=== PATIENT | female | born 1965 | race Caucasian/White ===

== ENCOUNTER 2017-01-03 19:48 | Inpatient (IN) | payer OTHER ==
[~2017-01-03] VITALS: Ht 170.2 cm; Wt 62.3 kg
[~2017-01-03 19:48] MED LIST: DIAZ5TAB PO; OXYC1TAB7 PO; PANT40TA5 PO; SERT100T PO; SUCR1TAB29 PO; TRAZ150T55 PO
[2017-01-03] MEDS ORDERED: IV NORMAL SALINE 1000ML BAG 1,000 ML IV ONE (20:00)
[2017-01-03] MEDS ORDERED: IPRATRPIUM/ALBUTEROL 0.5/2.5MG 3 ML NEBU. NEB ONE (20:00)
--- NOTE | 2017-01-03 20:30 | PHYS DOC ---
Past Medical History Past Medical History: Anxiety, COPD, Depression Additional Past Medical Histor: PANIC DISORDER, INSOMNIA, BULGING DISC,TBI Past Surgical History: Appendectomy, Tonsillectomy, Tubal ligation Alcohol Use: Occasionally Drug Use: Marijuana Adult General Chief Complaint Chief Complaint: SYNCOPE HPI HPI 51-year-old female who presents with a syncopal episode just prior to arrival. Patient recently had a pacemaker placed at [facility] approximately 10 days ago for sick sinus syndrome. Prior to the pacemaker placement, she had had multiple episodes of syncope like her episode today. She states she is otherwise well today and arose from her chair after eating a meal and felt significantly lightheaded and passed out and states she is unsure if she hit her head. Per EMS, the patient was hypotensive upon arrival in the 80s systolic. Fluid bolus was administered and upon arrival and now her blood pressure is much improved at 117/76. She is fully alert and oriented upon my exam and in no acute distress. She denies any chest pain or shortness of breath. Patient is on Eliquis therapy. Review of Systems Review of Systems Constitutional: Denies fever or chills [] Eyes: Denies change in visual acuity, redness, or eye pain [] HENT: Denies nasal congestion or sore throat [] Respiratory: Denies cough or shortness of breath [] Cardiovascular: No additional information not addressed in HPI [] GI: Denies abdominal pain, nausea, vomiting, bloody stools or diarrhea [] : Denies dysuria or hematuria [] Musculoskeletal: Denies back pain or joint pain [] Integument: Denies rash or skin lesions [] Neurologic: Denies headache, focal weakness or sensory changes [] Endocrine: Denies polyuria or polydipsia [] Current Medications Current Medications Current Medications Medications (Trade) Dose Ordered Sig/Rubio Start Time Stop Time Status Last Admin Dose Admin Albuterol/ Ipratropium (Duoneb) 3 ml 1X ONCE 01/03/17 20:00 01/03/17 20:02 DC 01/03/17 20:14 3 ML Sodium Chloride 1,000 ml @ 1,000 mls/hr 1X ONCE 01/03/17 20:00 01/03/17 20:59 DC 01/03/17 20:00 1,000 MLS/HR Allergies Allergies Allergies Coded Allergies Type Severity Reaction Last Updated Verified latex Allergy Mild Hives 07/11/15 Yes Physical Exam Physical Exam Constitutional: Well developed, well nourished, no acute distress, non-toxic appearance. [] HENT: Normocephalic, atraumatic, bilateral external ears normal, oropharynx moist, no oral exudates, nose normal. [] Eyes: PERRLA, EOMI, conjunctiva normal, no discharge. [] Neck: Normal range of motion, no tenderness, supple, no stridor. [] Cardiovascular:Heart rate regular rhythm, no murmur [] Lungs & Thorax: Bilateral breath sounds clear to auscultation, pacemaker site appears clean dry and intact and there is no evidence of cellulitic change or purulence from the wound site [] Abdomen: Bowel sounds normal, soft, no tenderness, no masses, no pulsatile masses. [] Skin: Warm, dry, no erythema, no rash. [] Back: No tenderness, no CVA tenderness. [] Extremities: No tenderness, no cyanosis, no clubbing, ROM intact, no edema. [] Neurologic: Alert and oriented X 3, normal motor function, normal sensory function, no focal deficits noted. [] Psychologic: Affect normal, judgement normal, mood normal. [] Current Patient Data Vital Signs Vital Signs Date Time Temp Pulse Resp B/P (MAP) Pulse Ox O2 Delivery O2 Flow Rate FiO2 01/03/17 21:34 150 143/63 (89) 93 Room Air 01/03/17 20:18 97.9 16 2.0 97.9 Lab Values Laboratory Tests Test 01/03/17 19:55 White Blood Count 7.9 x10^3/uL (4.0-11.0) Red Blood Count 4.23 x10^6/uL (3.50-5.40) Hemoglobin 13.1 g/dL (12.0-15.5) Hematocrit 38.4 % (36.0-47.0) Mean Corpuscular Volume 91 fL (79-100) Mean Corpuscular Hemoglobin 31 pg (25-35) Mean Corpuscular Hemoglobin Concent 34 g/dL (31-37) Red Cell Distribution Width 13.7 % (11.5-14.5) Platelet Count 311 x10^3/uL (140-400) Neutrophils (%) (Auto) 57 % (31-73) Lymphocytes (%) (Auto) 29 % (24-48) Monocytes (%) (Auto) 12 % (0-9) H Eosinophils (%) (Auto) 2 % (0-3) Basophils (%) (Auto) 1 % (0-3) Neutrophils # (Auto) 4.5 x10^3uL (1.8-7.7) Lymphocytes # (Auto) 2.3 x10^3/uL (1.0-4.8) Monocytes # (Auto) 1.0 x10^3/uL (0.0-1.1) Eosinophils # (Auto) 0.1 x10^3/uL (0.0-0.7) Basophils # (Auto) 0.0 x10^3/uL (0.0-0.2) Sodium Level 135 mmol/L (136-145) L Potassium Level 3.4 mmol/L (3.5-5.1) L Chloride Level 98 mmol/L (98-107) Carbon Dioxide Level 25 mmol/L (21-32) Anion Gap 12 (6-14) Blood Urea Nitrogen 11 mg/dL (7-20) Creatinine 0.8 mg/dL (0.6-1.0) Estimated GFR (Cockcroft-Gault) 75.6 Glucose Level 115 mg/dL (70-99) H Calcium Level 8.5 mg/dL (8.5-10.1) Magnesium Level 1.9 mg/dL (1.8-2.4) Troponin I Quantitative < 0.017 ng/mL (0.000-0.055) Laboratory Tests 01/03/17 19:55 Laboratory Tests 01/03/17 19:55 EKG EKG EKG as interpreted by me shows a sinus rhythm with a rate of 79 bpm. There is no acute injury pattern. There are pacer spikes before every P wave. Repeat EKG taken at 2046 shows a tachydysrhythmia with a rate of 140 bpm. No obvious pacer spikes are seen. There is no acute injury pattern. Radiology/Procedures Radiology/Procedures One view of the chest as interpreted by me shows a pacemaker with appropriate lead placement. There is no pneumothorax. No acute abnormalities seen. CT of the head without contrast demonstrates the following: HISTORY Syncope, fell and hit head, anticoagulated TECHNIQUE Exposure: One or more of the following individualized dose reduction techniques were utilized for this exam: 1. Automated exposure control. 2. Adjustment of the mA and/or kV according to patient size. 3. Use of iterative reconstruction technique. [address] imaging skullbase to vertex COMPARISON No prior FINDINGS No intracranial hemorrhage, mass, hydrocephalus, extra-axial fluid collections or infarction. Orbits, paranasal sinuses, mastoids and bones are unremarkable. IMPRESSION No acute intracranial CT abnormality. Course & Med Decision Making Course & Med Decision Making Pertinent Labs and Imaging studies reviewed. (See chart for details) This 51-year-old female with a single episode of full laboratory workup. Her EKG and chest x-ray are unremarkable at this time. Her pacemaker site appears to be within the normal stages of healing. Her device will be interrogated. Laboratory workup is pending at this time. Her blood pressure is significantly improved after fluid bolus. A CT of her head will also be obtained as the patient is on Eliquis therapy and is unsure if she hit her head. While in the department the patient has had a tachydysrhythmia that's ranged between the 120s to 160s. She also had several runs of the wide complex rhythm. A meal bolus was given. Her case is discussed with the senior benefits analyst, Dr. Kearns, who agreed with this plan. [employer] roofing sales representative came to the emergency department and interrogated her device and did not see any issue with the device itself. He did mention that she is having significant atrial tachycardia that she had when her device was placed 10 days ago. Laboratory workup was unremarkable. I discussed the need to admit the patient with the hospitalist, Dr. Felton, who agreed to accept the patient for further evaluation and treatment. Dragon Disclaimer Dragon Disclaimer This electronic medical record was generated, in whole or in part, using a voice recognition dictation system. Departure Departure Impression: Primary Impression: Dysrhythmia Additional Impression: Syncope Disposition: 09 ADMITTED INPATIENT Admitting Physician: Ximena Felton Condition: STABLE Referrals: ANN BOGGS MD (PCP) Problem Qualifiers JOSE CHURHC DO January 03, 2017 20:30
[2017-01-03 20:57] LABS: BASO % 1 % (0-3); EOS % 2 % (0-3); HEMATOCRIT 38.4 % (36.0-47.0); HEMOGLOBIN 13.1 g/dL (12.0-15.5); LYMPH # 2.3 x10^3/uL (1.0-4.8); LYMPH % 29 % (24-48); MEAN CORPUSCULAR HEMOGLOBIN 31 pg (25-35); MEAN CORPUSCULAR HGB CONC 34 g/dL (31-37); MEAN CORPUSCULAR VOLUME 91 fL (79-100); MONO % 12 % (0-9); NEUT % 57 % (31-73); PLATELET COUNT 311 x10^3/uL (140-400); RED BLOOD COUNT 4.23 x10^6/uL (3.50-5.40); RED CELL DISTRIBUTION WIDTH 13.7 % (11.5-14.5); WHITE BLOOD COUNT 7.9 x10^3/uL (4.0-11.0)
[2017-01-03 21:12] LABS: CALCIUM 8.5 mg/dL (8.5-10.1); CREATININE 0.8 mg/dL (0.6-1.0); GFR 75.6; POTASSIUM 3.4 mmol/L (3.5-5.1)
--- NOTE | 2017-01-03 21:33 | RAD ---
PROCEDURE CT head without contrast HISTORY Syncope, fell and hit head, anticoagulated TECHNIQUE Exposure: One or more of the following individualized dose reduction techniques were utilized for this exam: 1. Automated exposure control. 2. Adjustment of the mA and/or kV according to patient size. 3. Use of iterative reconstruction technique. [address] imaging skullbase to vertex COMPARISON No prior FINDINGS No intracranial hemorrhage, mass, hydrocephalus, extra-axial fluid collections or infarction. Orbits, paranasal sinuses, mastoids and bones are unremarkable. IMPRESSION No acute intracranial CT abnormality. Electronically signed by: Mane Land MD (January 03, 2017 21:32:19)
[2017-01-03] MEDS ORDERED: AMIODARONE 150 MG in IV DEXTROSE 5% 100 ML IV ONE (21:45)
[2017-01-03] MEDS: IV NORMAL SALINE 1000ML BAG 1,000 ML IV SCH (22:00)
[2017-01-03] MEDS ORDERED: ONDANSETRON PF 4 MG/2 ML VIAL. IV PRN (22:00)
[2017-01-03 22:35] LABS: BILIRUBIN,URINE NEGATIVE (NEG); GLUCOSE,URINE NEGATIVE (NEG); NITRITE,URINE NEGATIVE (NEG); PH,URINE 6.5; PROTEIN,URINE NEGATIVE (NEG-TRACE); UROBILINOGEN,URINE 0.2 mg/dL (0.2 mg/dL)
[2017-01-03 22:45] LABS: BACTERIA,URINE FEW /HPF (0-FEW); SQUAMOUS EPITHELIAL CELL,UR FEW /LPF
[2017-01-04] VITALS (7 sets, daily range): BP systolic 95–139; BP diastolic 57–88
[2017-01-04] MEDS: IV NORMAL SALINE 1000ML BAG 1,000 ML IV SCH ×2 (00:56→14:00)
[2017-01-04] MEDS ORDERED: DULO30CA2 PO (01:31)
[2017-01-04] MEDS ORDERED: APIX5TAB PO (01:31)
[2017-01-04] MEDS ORDERED: HYDR-971 PO (01:31)
[2017-01-04] MEDS ORDERED: ATEN25TA PO (01:31)
[2017-01-04] MEDS ORDERED: NAPR500T3 PO (01:31)
[2017-01-04] MEDS ORDERED: MIRT15TA3 PO (01:31)
[2017-01-04] MEDS ORDERED: VENTOLIN HFA18 GM INH (01:31)
[2017-01-04] MEDS ORDERED: TRAZ100T12 PO (01:31)
[2017-01-04] MEDS ORDERED: DRON400T PO (01:31)
[2017-01-04] MEDS ORDERED: traZODone 100 MG TABLET. PO PRN (01:45)
[2017-01-04] MEDS ORDERED: diazePAM 5 MG TABLET PO PRN (01:45)
[2017-01-04] MEDS ORDERED: NON FORMULARY ITEM (Albuterol Sulfate (Ventolin Hfa Inhaler) 2 PUFF) INH SCH (01:45)
--- NOTE | 2017-01-04 01:50 | ACF ---
Admission Forms Criteria CARDIAC ARRHYTHMIA Clinical Indications for Inpatient Care (Place 'X' for any and all applicable criteria): Ongoing inpatient care for cardiac arrhythmia needed as indicated by ANY ONE of the following(1)(2)(3)(4)(7) : [ ]I. Vital sign abnormality secondary to arrhythmia [ ]II. Patient has implantable cardioverter-defibrillator that has fired more than once within past 24 hours or needs immediate adjustment of settings that cannot be done other than in inpatient setting. [ ]III. Altered mental status [ ]IV. Resuscitated or aborted ventricular fibrillation or ventricular tachycardia in patient without implantable cardioverter- defibrillator [ ]V. Initiation of antiarrhythmic drug therapy is needed in patient at high risk of adverse effects as indicated by ANY ONE of the following: [ ]a) Significant structural heart disease (e.g., reduced ejection fraction, congenital heart disease, valvular heart disease) [ ]b) Prolonged QT interval [ ]c) Underlying sinus node or atrioventricular conduction disturbances [ ]d) Need for treatment with antiarrhythmic drugs that have significant proarrhythmic potential (e.g., dofetilide, sotalol, procainamide) [ ]. Acute myocardial ischemia as a consequence or suspected cause of arrhythmia [X]VII. Syncope secondary to arrhythmia [ ]VIII. Heart failure (eg, pulmonary edema) secondary to arrhythmia) (26)(27) [ ]IX. Patient has implantable cardioverter defibrillator that has fired more than once within past 24hr or needs immediate adjustment of settings that cannot be done other than in inpatient setting.(8) [ ]X. Sustained (30 seconds or more of ventricular rhythm at more than 100 beats per minute) ventricular tachycardia and ANY ONE of the following: [ ]a) No previous known history of sustained ventricular tachycardia [ ]b) Structural heart disease (eg, reduced ejection fraction, hypertrophic cardiomyopathy, severe valvular disease) and without implantable cardioverter-defibrillator(24)(32)(33) [ ]c) Need for treatment of drug toxicity (eg, digitalis toxicity)(34 ) [ ]d) Need for electrical cardioversion Extended stay beyond goal length of stay may be needed for [ ]a) Hemodynamic stability [ ]b) Arrhythmia evaluation completed [ ]c) Reversible causes of arrhythmia eliminated or mitigated [ ]d) Specific antiarrhythmia treatment initiated as appropriate [ ]e) Anticoagulation requirements addressed (or anticoagulation not required). [ ]f) Medical comorbidities manageable at lower level of care The original [facility] [employer] content created by [facility]formerly [employer] has been revised. The portions of the content which have been revised are identified through the use of italic text or in bold, and [facility] has neither reviewed nor approved the modified material. All other unmodified content is copyright [facility] [employer]. Please see references footnoted in the original [facility] edition 2016 Admission Criteria Met?: Yes ASTRID MERCEDES January 04, 2017 01:50
[2017-01-04] MEDS: HYDROcodone/APAP 5/325MG 1 TAB TABLET PO PRN ×3 (01:53→16:16)
[2017-01-04] MEDS ORDERED: UBID100C26 PO (01:58)
[2017-01-04] MEDS ORDERED: CHOL10003 PO (01:58)
[2017-01-04] MEDS ORDERED: DILT120C97 PO (01:58)
[2017-01-04] MEDS ORDERED: NON FORMULARY ITEM (Ubidecarenone (Coq-10) 100 MG) PO SCH (02:00)
[2017-01-04] MEDS ORDERED: ALBUTEROL SULFATE 2.5 MG/3 ML NEBU. NEB PRN (02:00)
[2017-01-04 04:29] LABS: BASO % 0 % (0-3); EOS % 2 % (0-3); HEMATOCRIT 35.2 % (36.0-47.0); HEMOGLOBIN 12.3 g/dL (12.0-15.5); LYMPH # 2.1 x10^3/uL (1.0-4.8); LYMPH % 33 % (24-48); MEAN CORPUSCULAR HEMOGLOBIN 31 pg (25-35); MEAN CORPUSCULAR HGB CONC 35 g/dL (31-37); MEAN CORPUSCULAR VOLUME 89 fL (79-100); MONO % 12 % (0-9); NEUT % 53 % (31-73); PLATELET COUNT 329 x10^3/uL (140-400); RED BLOOD COUNT 3.96 x10^6/uL (3.50-5.40); RED CELL DISTRIBUTION WIDTH 14.1 % (11.5-14.5); WHITE BLOOD COUNT 6.2 x10^3/uL (4.0-11.0)
[2017-01-04 04:55] LABS: CALCIUM 8.3 mg/dL (8.5-10.1); CREATININE 0.8 mg/dL (0.6-1.0); GFR 75.6; POTASSIUM 4.3 mmol/L (3.5-5.1)
--- NOTE | 2017-01-04 06:12 | EKG ---
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
--- NOTE | 2017-01-04 06:57 | EKG ---
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
--- NOTE | 2017-01-04 07:11 | RAD ---
Indication: Syncopal episode. Time of exam 2015 hours. No prior studies are available for comparison. The heart size is normal. There is a dual lead left subclavian cardiac pacer. No infiltrates are seen. There is no failure. No effusion or pneumothorax is identified. Impression: No acute abnormality is detected.
[2017-01-04] MEDS: IPRATRPIUM/ALBUTEROL 0.5/2.5MG 3 ML NEBU. NEB SCH ×4 (08:09→16:14)
[2017-01-04] MEDS: APIXABAN 5 MG TABLET. PO SCH ×2 (08:37→21:15)
[2017-01-04] MEDS: CHOLECALCIFEROL (VITAMIN D3) 1,000 UNIT TABLET PO SCH (08:37)
[2017-01-04] MEDS: DULoxetine HCL 30 MG CAPSULE.DR PO SCH (08:37)
[2017-01-04] MEDS: ATENOLOL 25 MG TABLET. PO SCH (08:38)
[2017-01-04] MEDS: DRONEDARONE HCL 400 MG TABLET PO SCH ×2 (08:40→21:14)
[2017-01-04] MEDS ORDERED: NAPROXEN 500 MG TABLET PO SCH (09:00)
[2017-01-04] MEDS ORDERED: dilTIAZem IV PUSH 25 MG/5 ML VIAL IVP ONE (09:45)
--- NOTE | 2017-01-04 09:52 | PDOC2 ---
IRIS COPPOLA [employer] WORKER 01/04/17 0952: CARDIAC CONSULT DATE OF CONSULT Date of Consult DATE: 01/04/17 TIME: 09:52 REASON FOR CONSULT Reason for Consult: dysrhythmia REFERRING PHYSICIAN Referring Physician: Dr. Awais Cornell SOURCE Source: Chart review, Patient (who is a vague and poor historian) HISTORY OF PRESENT ILLNESS HISTORY OF PRESENT ILLNESS 51 year female with atrial fib ablation in November at and then dual chamber Biotron[facility] PPM 12/31/2016 for SSS and PAF. Syncopal episode yesterday after eating; she stood to throw away a plate, became dizzy and lightheaded and then hit the floor. Witnessed by her niece but unclear how long she was out or if she struck furniture when falling. Lost control of bowels but not bladder and did not bite tongue. Reports 3 previous syncopal episodes with the most recent one being possibly 3 - 4 months; possibly was evaluated at . She is vague about the events surrounding this. Had taken diazepam, Cymbalta, hydrocodone and possibly used THC yesterday prior to syncope. EKG with atrial fibrillation/flutter and was treated with IV amiodarone 150 mg. PPM interrogated yesterday without significant findings; lead impedances satisfactory. Reason for Visit: atrial fib/rvr PAST MEDICAL HISTORY Cardiovascular: AFIB (with previous ablation ), Syncope, Other (SSS; dual chamber Biotronik PPM) Pulmonary: COPD CENTRAL NERVOUS SYSTEM: Other (TBI) GI: GERD Psych: Anxiety, Addictions (THC), Depression, Panic Rheumatologic: No pertinent hx Infectious disease: No pertinent hx ENT: No pertinent hx Renal/: No pertinent hx Endocrine: No pertinent hx Dermatology: No pertinent hx PAST SURGICAL HISTORY Past Surgical History: Appendectomy, Tubal Ligation, Tonsillectomy FAMILY HISTORY Family History: Heart Disease (mother of [place] age 52), Other (WPW) SOCIAL HISTORY Smoke: 1 pack per day (1.5 ppd since age 15; recently decreased to ~ 1/2 ppd) Drugs: Marijuana (daily) Lives: with Family CURRENT MEDICATIONS CURRENT MEDICATIONS Current Medications Medications (Trade) Dose Ordered Sig/Rubio Route PRN Reason Start Time Stop Time Status Last Admin Dose Admin Sodium Chloride 1,000 ml @ 1,000 mls/hr 1X ONCE IV 01/03/17 20:00 01/03/17 20:59 DC 01/03/17 20:00 Albuterol/ Ipratropium (Duoneb) 3 ml 1X ONCE NEB 01/03/17 20:00 01/03/17 20:02 DC 01/03/17 20:14 Amiodarone HCl 150 mg/Dextrose 103 ml @ 618 mls/hr 1X ONCE IV 01/03/17 21:45 01/03/17 21:54 DC 01/03/17 21:53 Sodium Chloride 1,000 ml @ 125 mls/hr Q8H IV 01/03/17 22:00 01/04/17 21:59 01/04/17 00:56 Albuterol/ Ipratropium (Duoneb) 3 ml RTQID NEB 01/04/17 08:00 01/05/17 07:59 01/04/17 08:09 Apixaban (Eliquis) 5 mg BID PO 01/04/17 09:00 01/04/17 08:37 Atenolol (Tenormin) 12.5 mg DAILY PO 01/04/17 09:00 01/04/17 08:38 Diazepam (Valium) 5 mg PRN BID PRN PO ANXIETY / AGITATION 01/04/17 01:45 01/04/17 08:37 Dronedarone (Multaq) 400 mg BID PO 01/04/17 09:00 01/04/17 08:40 Duloxetine HCl (Cymbalta) 30 mg DAILY PO 01/04/17 09:00 01/04/17 08:37 Acetaminophen/ Hydrocodone Bitart (Lortab 5/325) PAIN PRN Q4HRS PRN PO PAIN 01/04/17 01:45 01/04/17 08:39 Vitamin D (Vitamin D3) 1,000 unit DAILY PO 01/04/17 09:00 01/04/17 08:37 Diltiazem HCl (Cardizem 24hr ) 120 mg DAILY PO 01/04/17 09:00 01/04/17 08:39 ALLERGIES ALLERGIES: Coded Allergies: latex (Verified Allergy, Mild, Hives, 07/11/15) ROS General: No: Chills, Night Sweats, Fatigue, Malaise, Appetite, Other PSYCHOLOGICAL ROS: YES: Anxiety, Depression, Sleep disturbances Eyes: No Blurry vision, No Decreased vision, No Double vision, No Dry eyes, No Excessive tearing, No Eye Pain, No Itchy Eyes, No Loss of vision, No Photophobia , No Scotomata, No Uses contacts, No Uses glasses, No Other HEENT: No: Heacaches, Visual Changes, Hearing change, Nasal congestion, Nasal discharge, Oral lesions, Sinus pain, Sore Throat, Epistaxis, Sneezing, Snoring, Tinnitus, Vertigo, Vocal changes, Other ALLERGY AND IMMUNOLOGY: No: Hives, Insect Bite Sensitivity, Itchy/Watery Eyes, Nasal Congestion, Post Nasal Drip, Seasonal Allergies, Other Hematological and Lymphatic: No: Bleeding Problems, Blood Clots, Blood Transfusions, Brusing, Night Sweats, Pallor, Swollen Lymph Nodes, Other ENDOCRINE: No: Breast Changes, Galactorrhea, Hair Pattern Changes, Hot Flashes , Malaise/lethargy, Mood Swings, Palpitations, Polydipsia/polyuria, Skin Changes , Temperature Intolerance, Unexpected Weight Changes, Other Breast: No New/Changing Breast Lumps, No Nipple changes, No Nipple discharge, No Other Respiratory: YES: Cough, Wheezing Cardiovascular: No Chest Pain, No Palpitations, No Orthopnea, No Paroxysmal Noc. Dyspnea, No Edema, No Lt Headedness, No Other Gastrointestinal: No Nausea, No Vomiting, No Abdominal Pain, No Diarrhea, No Constipation, No Melena, No Hematochezia, No Other Genitourinary: No Dysuria, No Frequency, No Incontinence, No Hematuria, No Retention, No Discharge, No Urgency, No Pain, No Flank Pain, No Other Musculoskeletal: No Gait Disturbance, No Joint Pain, No Joint Stiffness, No Joint Swelling, No Muscle Pain, No Muscular Weakness, No Pain In:, No Swelling In:, No Other Neurological: Yes Dizziness Skin: No Dry Skin, No Eczema, No Hair Changes, No Lumps, No Mole Changes, No Mottling, No Nail Changes, No Pruritus, No Rash, No Skin Lesion Changes, No Other, No Acne PHYSICAL EXAM General: Alert, Cooperative HEENT: Atraumatic, PERRLA Lungs: Other (exp wheezing) Heart: Other (tachycardic; IRRR; tele: atrial fib/rvr) Abdomen: Normal bowel sounds, Soft Extremities: No edema, Normal pulses Skin: No rashes, Other (left pectoral/axillary incision C/D/I with intact steri -strips) Neuro: Normal speech Psych/Mental Status: Mental status NL, Mood NL MUSCULOSKELETAL: No deformity VITALS VITALS Vital Signs Date Time Temp Pulse Resp B/P (MAP) Pulse Ox O2 Delivery O2 Flow Rate FiO2 01/04/17 08:40 82 100/62 01/04/17 08:39 19 93 Room Air 01/04/17 07:00 98.5 98.5 01/03/17 20:18 2.0 LABS Lab: Laboratory Tests Test 01/03/17 19:55 01/03/17 22:30 01/04/17 03:55 White Blood Count 7.9 x10^3/uL (4.0-11.0) 6.2 x10^3/uL (4.0-11.0) Red Blood Count 4.23 x10^6/uL (3.50-5.40) 3.96 x10^6/uL (3.50-5.40) Hemoglobin 13.1 g/dL (12.0-15.5) 12.3 g/dL (12.0-15.5) Hematocrit 38.4 % (36.0-47.0) 35.2 % (36.0-47.0) Mean Corpuscular Volume 91 fL (79-100) 89 fL (79-100) Mean Corpuscular Hemoglobin 31 pg (25-35) 31 pg (25-35) Mean Corpuscular Hemoglobin Concent 34 g/dL (31-37) 35 g/dL (31-37) Red Cell Distribution Width 13.7 % (11.5-14.5) 14.1 % (11.5-14.5) Platelet Count 311 x10^3/uL (140-400) 329 x10^3/uL (140-400) Neutrophils (%) (Auto) 57 % (31-73) 53 % (31-73) Lymphocytes (%) (Auto) 29 % (24-48) 33 % (24-48) Monocytes (%) (Auto) 12 % (0-9) 12 % (0-9) Eosinophils (%) (Auto) 2 % (0-3) 2 % (0-3) Basophils (%) (Auto) 1 % (0-3) 0 % (0-3) Neutrophils # (Auto) 4.5 x10^3uL (1.8-7.7) 3.3 x10^3uL (1.8-7.7) Lymphocytes # (Auto) 2.3 x10^3/uL (1.0-4.8) 2.1 x10^3/uL (1.0-4.8) Monocytes # (Auto) 1.0 x10^3/uL (0.0-1.1) 0.7 x10^3/uL (0.0-1.1) Eosinophils # (Auto) 0.1 x10^3/uL (0.0-0.7) 0.1 x10^3/uL (0.0-0.7) Basophils # (Auto) 0.0 x10^3/uL (0.0-0.2) 0.0 x10^3/uL (0.0-0.2) Sodium Level 135 mmol/L (136-145) 143 mmol/L (136-145) Potassium Level 3.4 mmol/L (3.5-5.1) 4.3 mmol/L (3.5-5.1) Chloride Level 98 mmol/L (98-107) 107 mmol/L (98-107) Carbon Dioxide Level 25 mmol/L (21-32) 27 mmol/L (21-32) Anion Gap 12 (6-14) 9 (6-14) Blood Urea Nitrogen 11 mg/dL (7-20) 9 mg/dL (7-20) Creatinine 0.8 mg/dL (0.6-1.0) 0.8 mg/dL (0.6-1.0) Estimated GFR (Cockcroft-Gault) 75.6 75.6 Glucose Level 115 mg/dL (70-99) 101 mg/dL (70-99) Calcium Level 8.5 mg/dL (8.5-10.1) 8.3 mg/dL (8.5-10.1) Magnesium Level 1.9 mg/dL (1.8-2.4) Troponin I Quantitative < 0.017 ng/mL (0.000-0.055) 0.020 ng/mL (0.000-0.055) Urine Collection Type Unknown Urine Color Yellow Urine Clarity Clear Urine pH 6.5 Urine Specific Watson <=1.005 Urine Protein Negative mg/dL (NEG-TRACE) Urine Glucose (UA) Negative mg/dL (NEG) Urine Ketones (Stick) Negative mg/dL (NEG) Urine Blood Small (NEG) Urine Nitrite Negative (NEG) Urine Bilirubin Negative (NEG) Urine Urobilinogen Dipstick 0.2 mg/dL (0.2 mg/dL) Urine Leukocyte Esterase Negative (NEG) Urine RBC 3-5 /HPF (0-2) Urine WBC 1-4 /HPF (0-4) Urine Squamous Epithelial Cells Few /LPF Urine Amorphous Sediment Present /HPF Urine Bacteria Few /HPF (0-FEW) IMAGES IMAGES CXR: No prior studies are available for comparison. The heart size is normal. There is a dual lead left subclavian cardiac pacer. No infiltrates are seen. There is no failure. No effusion or pneumothorax is identified. Impression: No acute abnormality is detected. ASSESSMENT/PLAN ASSESSMENT/PLAN 1. syncope ? related to medications check orthostatic BP with loss of bowel control - ?? seizure no dysrhythmia seen on PPM interrogation request records from [facility] - if no response from [facility], will order echo given IVF bolus 2. atrial fib with RVR AF ablation 11/2016 @ [facility] bolused with IV amiodarone in ER routinely treated with Multaq - continue converted to SR/A-pacing prior to bolusing with dilitazem and starting gtt increased diltiazem to 180 mg daily continue OAC with Eliquis BID 3. SSS with previous Biotronik PPM interrogation without significant findings leads appear well positioned on CXR incision remains intact 4. COPD with persistent tobacco abuse 5. psychiatric/mental health issues/TBI Problems: DINORA HOGAN MD 01/04/17 1608: CARDIAC CONSULT ALLERGIES ALLERGIES: Coded Allergies: latex (Verified Allergy, Mild, Hives, 07/11/15) ASSESSMENT/PLAN ASSESSMENT/PLAN Pt. seen and examined. Agree with above HYDRODYNAMICIST note. No acute events overnight. Pacer check wnl. Wound looks good from cephalic approach. No events on tele. Suspect her syncope was vagal issue from narcotics, possible mild tachyarrhythmia. Still has parox afib. Will need follow up from EP. Problems: IRIS COPPOLA APRN January 04, 2017 09:52 DINORA HOGAN MD January 04, 2017 16:08
[2017-01-04] MEDS ORDERED: ANTI-COAG MONITOR BY PHARMACY. MC PRN (13:00)
--- NOTE | 2017-01-04 16:28 | CARD ---
APPROVED REPORT EXAM: Two-dimensional and M-mode echocardiogram with Doppler and color Doppler. Other Information Quality : Average INDICATION Syncope 2D DIMENSIONS RVDd2.5 (2.9-3.5cm)Left Atrium(2D)2.5 (1.6-4.0cm) IVSd0.9 (0.7-1.1cm)Aortic Root(2D)2.9 (2.0-3.7cm) LVDd4.2 (3.9-5.9cm)LVOT Diameter2.0 (1.8-2.4cm) PWd0.9 (0.7-1.1cm)LVDs3.3 (2.5-4.0cm) FS (%) 22.6 %SV36.5 ml LVEF(%)45.9 (>50%) Aortic Valve AoV Peak Mook.112.9cm/sAoV VTI20.2cm AO Peak GR.5.1mmHgLVOT Peak Mook.86.8cm/s LVOT VTI 17.58cmAO Mean GR.3mmHg MAGDALENO (VMAX)2.66dv3LPJ (VTI)2.75cm2 Mitral Valve MV E Dlbaaack61.4cm/sMV DECEL [id number] MV A Hlbkgamm32.1cm/sMV E Mean Gr.1mmHg MV UUK00zpN/A Ratio1.6 MV A [id number] (PHT)5.81cm2 TDI E/Lateral E'6.4E/Medial E'8.4 Pulmonary Valve RVOT VTI11.7cm Tricuspid Valve TR P. Ekyevrgq889eq/sRAP [id number] TR Peak Gr.65srVxNQHW33fiTq Pulmonary Vein S1 Sshtynyl57.5cm/sD2 Nqunqhsh18.5cm/s LEFT VENTRICLE The left ventricle is normal size. There is normal left ventricular wall thickness. Left ventricle sy stolic function is normal. The Ejection Fraction is 50-55%. The left ventricular diastolic function a nd filling is normal for age. There is no ventricular septal defect visualized. RIGHT VENTRICLE The right ventricle is normal size. The right ventricular systolic function is normal. There is a pac emaker lead seen in the RV/RA. ATRIA The left atrium size is normal. The right atrium size is normal. The interatrial septum is intact wit h no evidence for an atrial septal defect or patent foramen ovale as noted on 2-D or Doppler imaging. AORTIC VALVE The aortic valve is normal in structure and function. The aortic valve is trileaflet. Doppler and Col or Flow revealed no significant aortic regurgitation. There is no significant aortic valvular stenosi s. MITRAL VALVE The mitral valve leaflets are thickened. There is no mitral valve stenosis. Doppler and Color Flow re vealed trace mitral regurgitation. TRICUSPID VALVE The tricuspid valve is normal in structure and function. Doppler and Color Flow revealed mild tricusp id regurgitation. The PA pressure was estimated at 24 mmHg. There is no tricuspid valve stenosis. PULMONIC VALVE The pulmonic valve is not well visualized. Doppler and Color Flow revealed no pulmonic valvular regur gitation. There is no pulmonic valvular stenosis. GREAT VESSELS The aortic root is normal in size. Normal pulmonary venous flow (Doppler). The IVC is normal in size and collapses >50% with inspiration. PERICARDIAL EFFUSION There is no evidence of significant pericardial effusion. Critical Notification Critical Value: No <Conclusion> Left ventricle systolic function is normal. The Ejection Fraction is 50-55%. Trace mitral regurgitation. Mild tricuspid regurgitation. The PA pressure was estimated at 24 mmHg. There is no evidence of significant pericardial effusion.
--- NOTE | 2017-01-04 17:52 | HP ---
ADMIT DATE: CHIEF COMPLAINT: Syncope. HISTORY OF PRESENT ILLNESS: The patient is a 51-year-old woman with history of arrhythmia since age 50, who actually had a pacemaker placement on 01/01/2017 at . She thinks this was for a diagnosis of sick sinus syndrome. She actually had an ablation done as well. Today, she got up from the chair after eating a meal, felt a little lightheaded and passed out. She is sure if she struck her head. Apparently witnesses were close by and saw the event. She recovered consciousness quickly, but was still slightly confused. In the Emergency Room, she actually was found hypotensive with systolic blood pressures in the 80s. She responded to IV fluid administration. The patient actually had multiple episodes of syncope in the past similar to what happened today. These were thought to be secondary to the arrhythmia. Pacemaker has been noted to be functioning well at all. PAST MEDICAL HISTORY: Sick sinus syndrome as above, COPD, anxiety/depression, panic disorder, status post appendectomy, tonsillectomy and tubal ligation. FAMILY HISTORY: Positive for sudden in her mother at age 62. No other family members with arrhythmia to her knowledge. SOCIAL HISTORY: Smokes about a pack a day. Occasional marijuana. Denies any alcohol or other drugs. ALLERGIES: LATEX. HOME MEDICATIONS: Reconciled with MAR. REVIEW OF SYSTEMS: Denies any ongoing issues at this time. Denies any lightheadedness, any headache, any nausea, vomiting, neck pain or other symptoms. Denies any palpitations or chest pain. PHYSICAL EXAMINATION: VITAL SIGNS: From today show a blood pressure of 122/71, heart rate of 91, respiratory rate at 22. She is afebrile. GENERAL: This is a well-nourished, 51-year-old, woman; alert and oriented, in no acute distress. HEENT: Shows no scleral icterus. NECK: Supple, without any lymphadenopathy. LUNGS: Clear to auscultation bilaterally. HEART: Regular rate and rhythm. ABDOMEN: Has positive bowel sounds, soft, nontender. EXTREMITIES: Show no edema. SKIN: Warm, soft and dry without any rash, note pacer placement in the left upper chest. LABORATORY DATA: CBC with a WBC of 6.2, hemoglobin 12.3, platelets of 329, BUN and creatinine 9 and 0.8. Normal electrolytes. Troponins essentially within normal limits. TSH normal. IMAGING STUDY: Chest x-ray shows no acute abnormality. CT of the head also within normal limits. ASSESSMENT AND PLAN: The patient is a 51-year-old woman with arrhythmia, status post ablation and pacemaker placement recently at . She was admitted with hypotension of unclear etiology, suspicious for dehydration as she responded with IV fluids. She had a few episodes of tachyarrhythmia here. We will continue to watch her. Cardiology has been consulted and is following as well. We will continue her home medications for psych issues and pain control. Monitor multiple potentially sedating medications closely. MESHA ZAVALA MD DR: SEFERINO/nts JOB#: [id number] / [id number] ABIGAIL
[2017-01-04] MEDS ORDERED: MIRTAZAPINE 15 MG TABLET PO SCH (21:00)
[2017-01-05 03:50] VITALS: BP 101/53
[2017-01-05 06:31] LABS: BASO % 1 % (0-3); EOS % 4 % (0-3); HEMATOCRIT 35.5 % (36.0-47.0); HEMOGLOBIN 12.2 g/dL (12.0-15.5); LYMPH # 2.1 x10^3/uL (1.0-4.8); LYMPH % 31 % (24-48); MEAN CORPUSCULAR HEMOGLOBIN 31 pg (25-35); MEAN CORPUSCULAR HGB CONC 34 g/dL (31-37); MEAN CORPUSCULAR VOLUME 89 fL (79-100); MONO % 10 % (0-9); NEUT % 54 % (31-73); PLATELET COUNT 373 x10^3/uL (140-400); RED BLOOD COUNT 3.97 x10^6/uL (3.50-5.40); RED CELL DISTRIBUTION WIDTH 14.3 % (11.5-14.5); WHITE BLOOD COUNT 6.6 x10^3/uL (4.0-11.0)
[2017-01-05 06:41] LABS: ALBUMIN 3.4 g/dL (3.4-5.0); ALBUMIN/GLOBULIN RATIO 0.9 (1.0-1.7); CALCIUM 8.8 mg/dL (8.5-10.1); CREATININE 0.9 mg/dL (0.6-1.0); POTASSIUM 4.2 mmol/L (3.5-5.1); TOTAL BILIRUBIN 0.4 mg/dL (0.2-1.0)
[2017-01-05 07:45] VITALS: BP 119/60
[2017-01-05] MEDS: CHOLECALCIFEROL (VITAMIN D3) 1,000 UNIT TABLET PO SCH (09:39)
[2017-01-05] MEDS: APIXABAN 5 MG TABLET. PO SCH (09:39)
[2017-01-05] MEDS: ATENOLOL 25 MG TABLET. PO SCH (09:40)
[2017-01-05] MEDS: DULoxetine HCL 30 MG CAPSULE.DR PO SCH (09:41)
[2017-01-05] MEDS: DRONEDARONE HCL 400 MG TABLET PO SCH (09:42)
[2017-01-05] MEDS: HYDROcodone/APAP 5/325MG 1 TAB TABLET PO PRN (09:43)
[2017-01-05 11:01] VITALS: BP 115/54
--- NOTE | 2017-01-08 02:00 | DS ---
DATE OF DISCHARGE: 01/05/2017 CHIEF COMPLAINT: Syncope. HOSPITAL COURSE: The patient is a 51-year-old woman with longstanding history of arrhythmia, status post pacemaker placement on 01/01/2017 at . She apparently had ablation done as well for sick sinus syndrome. She had a syncopal event as she had had in the past which ultimately had prompted pacemaker placement. She presented to [facility] ER after the event. She was evaluated by Cardiology. Pacemaker was interrogated and found to be functioning fine. No other arrhythmias were noted. Echocardiogram was performed and found normal function and ejection fraction. Cardiology consult was obtained as well, not suspecting any cardiac etiology of her symptoms save for RVR with atrial fibrillation. She was given amiodarone. She did convert to sinus rhythm/paced rhythm. Her diltiazem dose was increased to 180 mg, which the patient declined. She was advised to follow up with her patient liaison JORGE and relate the suggested increase in her dose. The patient is also a tobacco user with known COPD. She was advised to strongly consider stopping smoking. DISCHARGE DATE: 01/05/2017. DISCHARGE DIAGNOSES: Atrial fibrillation with rapid ventricular response. DISCHARGE DISPOSITION: To home. DISCHARGE CONDITION: Improved. DISCHARGE MEDICATIONS: Please refer to MAR. DISCHARGE INSTRUCTIONS: The patient will follow up with her PCP and patient liaison JORGE. MESHA ZAVALA MD DR: UR/nts JOB#: [id number] / [id number] ABIGAIL
== END 2017-01-05 14:00 | disposition home or self-care (01) | DRG 312 ==
LOC: ER 19:48 → 2 NORTH 21:40
PROVIDERS: ADMIT Internal Medicine; ATTEND Internal Medicine
DX: R55 Syncope and collapse (principal); I48.92 Unspecified atrial flutter; I48.0 Paroxysmal atrial fibrillation; R00.0 Tachycardia, unspecified; I95.9 Hypotension, unspecified; F12.90 Cannabis use, unspecified, uncomplicated; F17.210 Nicotine dependence, cigarettes, uncomplicated; F41.0 Panic disorder [episodic paroxysmal anxiety]; J44.9 Chronic obstructive pulmonary disease, unspecified; K21.9 Gastro-esophageal reflux disease without esophagitis; F32.9 Major depressive disorder, single episode, unspecified; F41.9 Anxiety disorder, unspecified; Z98.51 Tubal ligation status; Z91.040 Latex allergy status; Z90.49 Acquired absence of other specified parts of digestive tract; Z95.0 Presence of cardiac pacemaker; Z82.49 Family history of ischemic heart disease and other diseases of the circulatory system
CPT/HCPCS: 36415; 70450; 71010; 80048; 80053; 81001; 83735; 84443; 84484; 85027; 93005; 93306; 94640; 94760; 96361; 96365; J0282; J7030; J7620; 99285-25